=== PATIENT | female | born 1990 | race Caucasian/White ===

== ENCOUNTER → 2019-07-15 11:28 | Outpatient (BNVA) | payer BC, SELFPAY | PROVIDERS: Family Provider Family Medicine; PCP Family Medicine; Visit Provider Nurse Practitioner | DX: J02.9 Acute pharyngitis, unspecified (principal); R50.9 Fever, unspecified | CPT/HCPCS: 87081; 87400; 87880 ==

== ENCOUNTER 2020-02-01 20:48 | Emergency (ER) | payer BC, SELFPAY ==
--- NOTE | 2020-02-01 20:52 | XR_ITS ---
WS: [id number] Portable AP upright chest, 02/01/2020 Clinical Data: sob Comparison: None. Findings: No nodules, masses or effusions are seen. The heart is normal. The pulmonary vascularity is not increased. No pneumonia or pneumothorax is seen. There is a decorative item overlying the umbili cus. XR/XR chest 1V portable [id number] Impression: Negative chest.
[2020-02-01 20:59] VITALS: BP 136/84; PULSE 111; RESP 25; TEMP 39.5; O2SAT 97; BMI 19.8
[2020-02-01 21:17] LABS: Basophils % 0.1 %; Hematocrit 37.2 % (37.0-47.0); Hemoglobin 12.7 g/dL (11.5-15.3); Lymphocytes # 0.3 10^3/uL (0.8-4.8); Lymphocytes % 3.9 %; Mean Corpuscular HGB Conc 34.1 g/dL (30.0-36.0); Mean Corpuscular Hemoglobin 28.9 pg (28.0-34.0); Mean Corpuscular Volume 84.7 fL (81-99); Mean Platelet Volume 10.8 fL (7.4-10.4); Monocytes # 0.5 10^3/uL (0.2-0.9); Neutrophils # 7.76 10^3/uL (1.8-7.7); Neutrophils % 89.7 %; Nucleated Red Blood Cells % 0 %; Platelet Count 110 10^3/cmm (130-400); Red Blood Count 4.39 10^6/uL (4.1-5.3); Red Cell Distribution Width 11.1 % (12.1-15.1); White Blood Count 8.7 10^3/uL (4.0-10.0)
[2020-02-01 21:27] LABS: HCG, Serum Qual Negative (Negative)
[2020-02-01 21:34] LABS: Alanine Aminotransferase 11 U/L (0-33); Albumin Level 4.5 g/dL (3.5-5.2); Alkaline Phosphatase 59 IU/L (35-105); Anion Gap 13.8 (5-19); Aspartate Amino Transferase 16 U/L (0-32); Blood Urea Nitrogen 9 mg/dL (6-20); Calcium 9.2 mg/dL (8.5-10.5); Carbon Dioxide 24 mmol/L (22-29); Chloride 101 mmol/L (98-107); Globulin 2.7 g/dL (1.3-4.6); Glucose 112 mg/dL (65-115); Lipase 36 U/L (13-60); Osmolality Calculated 279 mOsm/kg (285-295); Potassium 3.8 mmol/L (3.5-5.1); Sodium 135 mmol/L (136-145); Total Bilirubin 0.5 mg/dL (0.15-1.2); Total Protein 7.2 g/dL (6.6-8.7)
--- NOTE | 2020-02-01 21:35 | ED_ITS ---
HPI - Fever General: Chief Complaint: Fever Stated Complaint: vomiting/sob/muscle aches Time Seen by Provider: 02/01/20 21:10 Source: patient Mode of arrival: ambulatory Limitations: no limitations History of Present Illness: HPI Narrative: Ms. Cardenas is a very nice 29-year-old female comes in with her mother with report of fever, shortness of breath, headache and vomiting. She is only vomited once and that was on the way here. She does have mild diffuse cramping abdominal pain. Patient states that she has a nonproductive cough. Patient states that she did have the COVID virus infection and was diagnosed on the fifth of this month and completed her 14-day quarantine with resolution of her symptoms. Patient began to get sick with the symptoms yesterday. She is not been around anybody else sick that she is aware of. She denies any dysuria, diarrhea, or any other complaints. She states of all her symptoms the muscle aches and pains are the worst. She denies any neck pain or stiffness. She denies any rash. Patient denies any urinary symptoms such as urinary frequency, urgency and does not describe any vaginal bleeding or discharge. Associated symptoms: Reports chills, headache(s), nausea and vomiting; Deny abdominal pain, flank pain, chest pain, diarrhea, dysuria or extremity pain Review of Systems Const: Reports: fever(s), chills, body aches, fatigue and malaise Eyes: Denies: change in vision, blurry vision, photophobia, eye discomfort, eye discharge, eye redness or yellow eyes ENMT: Denies: throat pain, odynophagia, hoarseness, swelling of lips/tongue, ear or mastoid pain, ear discharge, change in hearing or nasal discharge Card: Denies: chest pain, palpitations, irregular heart rhythm, edema, lightheadedness, syncope, pre-syncope, dyspnea on exertion or orthopnea Resp: Denies: dyspnea, productive cough, non-productive cough, wheezing, hemoptysis or chest congestion GI: Reports: nausea and vomiting; Denies: abdominal pain, hematemesis, coffee ground emesis, heartburn, diarrhea, constipation, GI cramping, hematochezia or melena : Denies: flank pain, dysuria, urinary frequency, urinary urgency or hematuria Musc: Denies: neck pain, back pain, extremity pain, extremity swelling, joint pain, joint swelling, joint redness, joint warmth or joint stiffness Skin/Breast: Denies: rash, pruritus, erythema, skin pain or skin tenderness Neuro: Reports: headache(s) Hu/Lymph: Denies: easy bruising, easy bleeding, petechiae, purpura or enlarged lymph nodes All/Imm: Denies: urticaria, throat swelling, tongue swelling, facial swelling or acute wheezing PFSH ED PFSH: Medical History Healthy female Surgical History History of tonsillectomy Family History Other Cancer Denies family history of Diabetes Dementia Hypertension Stroke Social History Smoking and tobacco status: never smoked Second hand smoke exposure: No Smoking risk assessment/counseling performed?: No Alcohol intake: current Alcohol intake frequency: holidays/special occasions only Desire information about alcohol rehabilitation?: No Counseling given: No Desire information about substance/drug rehabilitation?: No Counseling given: No Adopted: No Caregiver/support person: No Lives independently: Yes Household members: none Housing: House Marital status: Single service: No Current occupational status: employed Current occupation: [employer] History of recent travel: No Current gender identity: Female Female Reproductive History: Date of last menstrual period: 02/01/20 Physical Exam Const: COMMON NORMALS: no acute distress, patient oriented x3, no limitations and alert GENERAL APPEARANCE: cooperative HENMT: COMMON NORMALS: normocephalic, atraumatic, external ears normal, EAC's normal and Normal external nose present HEAD & SCALP: normal to inspection, normocephalic and atraumatic FACE & SINUS: normal facial exam and face symmetric NOSE: Normal external nose present and Normal nares present EXTERNAL EAR: Yes external ears normal EXTERNAL AUDITORY CANAL: EAC's normal MOUTH: Normal oral and palatal mucosa present, lip normal and tongue normal Eye: COMMON NORMALS: Equal, round and reactive pupils present and conjunctivae normal GENERAL EYE: appearance normal, both eyes and all related structures ALIGNMENT: Yes alignment normal PERIORBITAL: periorbital findings normal EYELID: eyelids normal CONJUNCTIVA: Yes conjunctivae normal SCLERA: sclerae normal PUPIL: Yes Equal, round and reactive pupils present Neck/C-Spine: COMMON NORMALS: full ROM, no lymphadenopathy, supple, no meningeal signs and no JVD GENERAL: Yes normal visual inspection and Yes trachea midline Chest: COMMONS NORMALS: normal inspection of the chest and normal palpation of entire chest wall Resp: COMMON NORMALS: normal respiratory effort, No retractions, No use of accessory muscles and clear to auscultation bilaterally EFFORT & INSPECTION: Yes able to speak in complete sentences and Yes symmetric chest movement AUSCULTATION: clear to auscultation bilaterally, no crackles, no rales, no rhonchi and no wheezes Cardio: COMMON NORMALS: no JVD, regular rate, regular rhythm, S1 normal heart sound present and S2 normal heart sound present RATE: regular rate RHYTHM: regular rhythm HEART SOUNDS: S1 normal heart sound present, S2 normal heart sound present, no click, no gallops, no murmurs and no rubs GI: COMMON NORMALS: Soft to palpation and No hepatosplenomegaly present PALPATION: Yes Soft to palpation, Yes Tenderness to palpation present (GI) (Mild diffusely), No Guarding due to palpation present (GI), No Rigid due to palpation, Yes No hepatosplenomegaly present, No Hernia present, No Palpable mass present and No Pulsatile mass present : COMMON NORMALS: Yes no CVA tenderness BLADDER/KIDNEY EXAM: Yes no CVA tenderness EXTERNAL FEMALE EXAM: No Hernia present Back/Pelvis: COMMON NORMALS: no CVA tenderness, thoracic and lumbar spine normal to inspection, no thoracic nor lumbar tenderness and thoraco-lumbar ROM normal Extremity: COMMON NORMALS: normal to inspection, full ROM, capillary refill normal, no joint enlargement, no clubbing, cyanosis or edema and no calf tenderness Neuro: COMMON NORMALS: patient oriented x3, CN's II-XII intact bilaterally, moves all extremities, no focal motor deficits and no sensory deficits noted SENSORIUM/ORIENTATION: Yes alert MENINGEAL SIGNS: Yes no meningeal signs SPEECH: speech normal Psych: COMMON NORMALS: mental status grossly normal, Normal thought process present, cooperative, normal affect, speech normal and activity/motor behavior normal SPEECH: Yes normal speech THOUGHT PROCESS: Normal thought process present Skin: COMMON NORMALS: no rashes or lesions noted, turgor normal, no jaundice, no petechiae and no mottling GENERAL SKIN EXAM: no rashes or lesions noted and turgor normal Course Vital Signs: Vital signs: Vital Signs Temperature 102 F H 02/02/20 02:13 Pulse Rate 76 02/02/20 02:13 Respiratory Rate 18 02/02/20 02:13 Blood Pressure 121/70 02/02/20 02:13 Pulse Oximetry 98 02/02/20 02:13 MDM - Fever MDM Narrative: Medical decision making narrative: 0120 - Zainab is feeling much better at this time. Her fever is down and she no longer feels nauseated and has not vomited here. Her greatest concern was that of emir the COVID virus again but there is no evidence of this at this time. Her work-up is been unremarkable here except for an elevated CRP. Because of the abdominal pain and vomiting with no evidence of infection with other testing I did CT her abdomen. The CT scan does show a possible picture of gastroenteritis which could be a cause for her fever and symptoms although she is not had any diarrhea. Her appendix is normal. 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 I reviewed this with Dr. Mckeon who states that this is likely just her normal appearance of her kidney. There is no evidence of stone on the CT. Dr. Mckeon suggested just treating her for viral infection. I did discuss with her the possibility of other things such as meningitis but she adamantly refuses a spinal tap. The patient does not clinically appear to have meningitis she does have a headache but no neck pain or meningismus. She has diffuse muscle aches and pains and fever but her symptoms are global and not focal to her head and neck. Nonetheless I have informed her and her mother who is with her that a missed meningitis can be life-threatening. Despite this warning the patient is adamant she does not want to go through this procedure and wants to be discharged. I am going to place the patient on empiric antibiotics and give her time to rest at home. I will also give her nausea medicine for at home. She agrees to follow-up with Dr. Pisano the next 1 to 2 days for recheck and if for any reason she cannot see him she agrees to return here. Patient understands if she change her mind or symptoms become worse she can return here for the lumbar puncture and other testing. At this time though the patient appears improved and she is insisting upon discharge. Patient clearly has the capacity to make this decision and she understands the risks of leaving without complete work-up but at this time she is insistent upon discharge. Lab Data: Labs: Lab Results 02/01/20 02/01/20 02/01/20 Range/Units 21:08 21:08 21:08 WBC 8.7 (4.0-10.0) 10^3/ uL RBC 4.39 (4.1-5.3) 10^6/u L Hgb 12.7 (11.5-15.3) g/dL Hct 37.2 (37.0-47.0) % MCV 84.7 (81-99) fL MCH 28.9 (28.0-34.0) pg MCHC 34.1 (30.0-36.0) g/dL RDW 11.1 L (12.1-15.1) % Plt Count 110 L (130-400) 10^3/c mm MPV 10.8 H (7.4-10.4) fL Neut % (Auto) 89.7 % Lymph % (Auto) 3.9 % [place] % (Auto) 6.0 % Eos % (Auto) 0.0 % Baso % (Auto) 0.1 % Neut # (Auto) 7.76 H (1.8-7.7) 10^3/u L Lymph # (Auto) 0.3 L (0.8-4.8) 10^3/u L [place] # (Auto) 0.5 (0.2-0.9) 10^3/u L Eos # (Auto) 0.0 (0.0-0.8) 10^3/u L Baso # (Auto) 0.0 (0.0-0.1) 10^3/u L Nucleated RBC % (a uto) 0 % Nucleated RBCs # 0.0 /100WBC Fibrinogen (174-498) mg/dL D-Dimer (0-0.59) ug/mIFE U Sodium 135 L (136-145) mmol/L Potassium 3.8 (3.5-5.1) mmol/L Chloride 101 (98-107) mmol/L Carbon Dioxide 24 (22-29) mmol/L Anion Gap 13.8 (5-19) BUN 9 (6-20) mg/dL Creatinine 0.8 (0.5-0.9) mg/dL GFR Calculation 86.0 L (90-130) mL/min Glucose 112 (65-115) mg/dL Calculated Osmolal ity 279 L (285-295) mOsm/k g Lactic Acid (0.5-2.2) mmol/L Calcium 9.2 (8.5-10.5) mg/dL Magnesium (1.7-2.3) mg/dL Total Bilirubin 0.5 (0.15-1.2) mg/dL AST 16 (0-32) U/L ALT 11 (0-33) U/L Alkaline Phosphata se 59 (35-105) IU/L Lactate Dehydrogen ase (135-214) U/L C-Reactive Protein (0.0-4.9) mg/L Total Protein 7.2 (6.6-8.7) g/dL Albumin 4.5 (3.5-5.2) g/dL Globulin 2.7 (1.3-4.6) g/dL Lipase 36 (13-60) U/L Procalcitonin (0-0.5) ng/mL HCG, Qual Negative (Negative) Urine Color (Yellow) Urine Appearance (CLEAR) Urine pH (5-7) Ur Specific Gravit y (1.005-1.030) Urine Protein (Negative) Urine Glucose (UA) (Normal) Urine Ketones (Negative) Urine Blood (Negative) Urine Nitrate (Negative) Urine Bilirubin (Negative) Prot Sulfosalicyli c Acd (Negative) Urine Urobilinogen (Negative) mg/dL Ur Leukocyte Sabrina ase (Negative) Influenza Type A A g (Negative) Influenza Type B A g (Negative) SARS-CoV-2 Ag (Rap id) (Negative) Group A Strep Rapi d (Negative) 02/01/20 02/01/20 02/01/20 Range/Units 21:08 21:08 21:08 WBC (4.0-10.0) 10^3/ uL RBC (4.1-5.3) 10^6/u L Hgb (11.5-15.3) g/dL Hct (37.0-47.0) % MCV (81-99) fL MCH (28.0-34.0) pg MCHC (30.0-36.0) g/dL RDW (12.1-15.1) % Plt Count (130-400) 10^3/c mm MPV (7.4-10.4) fL Neut % (Auto) % Lymph % (Auto) % [place] % (Auto) % Eos % (Auto) % Baso % (Auto) % Neut # (Auto) (1.8-7.7) 10^3/u L Lymph # (Auto) (0.8-4.8) 10^3/u L [place] # (Auto) (0.2-0.9) 10^3/u L Eos # (Auto) (0.0-0.8) 10^3/u L Baso # (Auto) (0.0-0.1) 10^3/u L Nucleated RBC % (a uto) % Nucleated RBCs # /100WBC Fibrinogen 382 (174-498) mg/dL D-Dimer 0.39 (0-0.59) ug/mIFE U Sodium (136-145) mmol/L Potassium (3.5-5.1) mmol/L Chloride (98-107) mmol/L Carbon Dioxide (22-29) mmol/L Anion Gap (5-19) BUN (6-20) mg/dL Creatinine (0.5-0.9) mg/dL GFR Calculation (90-130) mL/min Glucose (65-115) mg/dL Calculated Osmolal ity (285-295) mOsm/k g Lactic Acid 0.8 (0.5-2.2) mmol/L Calcium (8.5-10.5) mg/dL Magnesium 1.7 (1.7-2.3) mg/dL Total Bilirubin (0.15-1.2) mg/dL AST (0-32) U/L ALT (0-33) U/L Alkaline Phosphata se (35-105) IU/L Lactate Dehydrogen ase 158 (135-214) U/L C-Reactive Protein 55.5 H (0.0-4.9) mg/L Total Protein (6.6-8.7) g/dL Albumin (3.5-5.2) g/dL Globulin (1.3-4.6) g/dL Lipase (13-60) U/L Procalcitonin 0.16 (0-0.5) ng/mL HCG, Qual (Negative) Urine Color (Yellow) Urine Appearance (CLEAR) Urine pH (5-7) Ur Specific Gravit y (1.005-1.030) Urine Protein (Negative) Urine Glucose (UA) (Normal) Urine Ketones (Negative) Urine Blood (Negative) Urine Nitrate (Negative) Urine Bilirubin (Negative) Prot Sulfosalicyli c Acd (Negative) Urine Urobilinogen (Negative) mg/dL Ur Leukocyte Sabrina ase (Negative) Influenza Type A A g (Negative) Influenza Type B A g (Negative) SARS-CoV-2 Ag (Rap id) (Negative) Group A Strep Rapi d (Negative) 02/01/20 02/01/20 02/01/20 Range/Units 21:34 21:34 22:08 WBC (4.0-10.0) 10^3/ uL RBC (4.1-5.3) 10^6/u L Hgb (11.5-15.3) g/dL Hct (37.0-47.0) % MCV (81-99) fL MCH (28.0-34.0) pg MCHC (30.0-36.0) g/dL RDW (12.1-15.1) % Plt Count (130-400) 10^3/c mm MPV (7.4-10.4) fL Neut % (Auto) % Lymph % (Auto) % [place] % (Auto) % Eos % (Auto) % Baso % (Auto) % Neut # (Auto) (1.8-7.7) 10^3/u L Lymph # (Auto) (0.8-4.8) 10^3/u L [place] # (Auto) (0.2-0.9) 10^3/u L Eos # (Auto) (0.0-0.8) 10^3/u L Baso # (Auto) (0.0-0.1) 10^3/u L Nucleated RBC % (a uto) % Nucleated RBCs # /100WBC Fibrinogen (174-498) mg/dL D-Dimer (0-0.59) ug/mIFE U Sodium (136-145) mmol/L Potassium (3.5-5.1) mmol/L Chloride (98-107) mmol/L Carbon Dioxide (22-29) mmol/L Anion Gap (5-19) BUN (6-20) mg/dL Creatinine (0.5-0.9) mg/dL GFR Calculation (90-130) mL/min Glucose (65-115) mg/dL Calculated Osmolal ity (285-295) mOsm/k g Lactic Acid (0.5-2.2) mmol/L Calcium (8.5-10.5) mg/dL Magnesium (1.7-2.3) mg/dL Total Bilirubin (0.15-1.2) mg/dL AST (0-32) U/L ALT (0-33) U/L Alkaline Phosphata se (35-105) IU/L Lactate Dehydrogen ase (135-214) U/L C-Reactive Protein (0.0-4.9) mg/L Total Protein (6.6-8.7) g/dL Albumin (3.5-5.2) g/dL Globulin (1.3-4.6) g/dL Lipase (13-60) U/L Procalcitonin (0-0.5) ng/mL HCG, Qual (Negative) Urine Color Yellow (Yellow) Urine Appearance Clear (CLEAR) Urine pH 8 H (5-7) Ur Specific Gravit y 1.015 (1.005-1.030) Urine Protein Neg (Negative) Urine Glucose (UA) Norm (Normal) Urine Ketones Negative (Negative) Urine Blood Neg (Negative) Urine Nitrate Negative (Negative) Urine Bilirubin Neg (Negative) Prot Sulfosalicyli c Acd Negative (Negative) Urine Urobilinogen Norm (Negative) mg/dL Ur Leukocyte Sabrina ase Negative (Negative) Influenza Type A A g Negative (Negative) Influenza Type B A g Negative (Negative) SARS-CoV-2 Ag (Rap id) (Negative) Group A Strep Rapi d Negative (Negative) 02/01/20 Range/Units 23:14 WBC (4.0-10.0) 10^3/ uL RBC (4.1-5.3) 10^6/u L Hgb (11.5-15.3) g/dL Hct (37.0-47.0) % MCV (81-99) fL MCH (28.0-34.0) pg MCHC (30.0-36.0) g/dL RDW (12.1-15.1) % Plt Count (130-400) 10^3/c mm MPV (7.4-10.4) fL Neut % (Auto) % Lymph % (Auto) % [place] % (Auto) % Eos % (Auto) % Baso % (Auto) % Neut # (Auto) (1.8-7.7) 10^3/u L Lymph # (Auto) (0.8-4.8) 10^3/u L [place] # (Auto) (0.2-0.9) 10^3/u L Eos # (Auto) (0.0-0.8) 10^3/u L Baso # (Auto) (0.0-0.1) 10^3/u L Nucleated RBC % (a uto) % Nucleated RBCs # /100WBC Fibrinogen (174-498) mg/dL D-Dimer (0-0.59) ug/mIFE U Sodium (136-145) mmol/L Potassium (3.5-5.1) mmol/L Chloride (98-107) mmol/L Carbon Dioxide (22-29) mmol/L Anion Gap (5-19) BUN (6-20) mg/dL Creatinine (0.5-0.9) mg/dL GFR Calculation (90-130) mL/min Glucose (65-115) mg/dL Calculated Osmolal ity (285-295) mOsm/k g Lactic Acid (0.5-2.2) mmol/L Calcium (8.5-10.5) mg/dL Magnesium (1.7-2.3) mg/dL Total Bilirubin (0.15-1.2) mg/dL AST (0-32) U/L ALT (0-33) U/L Alkaline Phosphata se (35-105) IU/L Lactate Dehydrogen ase (135-214) U/L C-Reactive Protein (0.0-4.9) mg/L Total Protein (6.6-8.7) g/dL Albumin (3.5-5.2) g/dL Globulin (1.3-4.6) g/dL Lipase (13-60) U/L Procalcitonin (0-0.5) ng/mL HCG, Qual (Negative) Urine Color (Yellow) Urine Appearance (CLEAR) Urine pH (5-7) Ur Specific Gravit y (1.005-1.030) Urine Protein (Negative) Urine Glucose (UA) (Normal) Urine Ketones (Negative) Urine Blood (Negative) Urine Nitrate (Negative) Urine Bilirubin (Negative) Prot Sulfosalicyli c Acd (Negative) Urine Urobilinogen (Negative) mg/dL Ur Leukocyte Sabrina ase (Negative) Influenza Type A A g (Negative) Influenza Type B A g (Negative) SARS-CoV-2 Ag (Rap id) Negative (Negative) Group A Strep Rapi d (Negative) Imaging Data^: CXR: Attestation: I personally reviewed and interpreted this imaging study as follows: My impression: No acute cardiopulmonary findings. CT Abd/Pel: Radiologist's impression: [place] [address] CT Scan Report Signed Patient: Zainab Cardenas Unit #: [id number] : 1990 Age/Sex: 29 / F ADM Date: 02/01/20 Loc: ER Room/Bed: Attending Dr: Ordering Provider/Ordering MD: Germaine Juárez DO Date of Service: 02/01/20 Procedure(s): CT abdomen pelvis w con* [id number] Accession Number(s): [id number] Report Number: [id number] PROCEDURE INFORMATION: Exam: CT Abdomen And Pelvis With Contrast Exam date and time: 02/01/2020 11:13 PM Age: 29 years old Clinical indication: Nausea and vomiting; Abdominal pain; Generalized TECHNIQUE: Imaging protocol: Computed tomography of the abdomen and pelvis with intravenous contrast. Radiation optimization: All CT scans at this facility use at least one of these dose optimization techniques: automated exposure control; mA and/or kV adjustment per patient size (includes targeted exams where dose is matched to clinical indication); or iterative reconstruction. Contrast material: O0MNI 300; Contrast volume: 95 ml; Contrast route: INTRAVENOUS (IV); COMPARISON: CT abdomen pelvis w con* [id number] 04/28/2014 6:50 PM RADIATION DOSE METRICS: Total DLP (mGy-cm): 389.18 FINDINGS: Lungs: The lung bases are clear. Liver: Unremarkable. Gallbladder and bile ducts: No definite gallbladder abnormality by CT. No biliary tree dilation. Pancreas: Unremarkable. Spleen: Unremarkable. Adrenals: Unremarkable. Kidneys and ureters: Duplication of the right renal collecting system, with at least partial duplication of the ureters. Mild right hydronephrosis and hydroureter, involving both the upper and lower pole moieties. Suspect mild thickening of the ureteral mckay. No visible ureteral calculus. While not specific, the above findings could be secondary to right ureteritis/pyelonephritis. Other possible etiologies for this appearance might include a recently passed or radiolucent ureteral calculus, and less commonly ureteral stricture. Possibly this could be the patient's baseline appearance. Please correlate clinically. No perinephric fluid. The kidneys enhance homogeneously. No left hydronephrosis or visible left ureteral calculus. Stomach and bowel: A few proximal small bowel loops, including the duodenum, are fluid filled and borderline prominent in size. However, the overall appearance is not strongly suggestive of significant small bowel obstruction at this time. This appearance could be secondary to some form of gastroenteritis. Please correlate clinically. If there is clinical suspicion for small bowel obstruction, follow-up may be helpful to exclude progression. There are no CT findings to strongly suggest diverticulitis. Appendix: The appendix is visualized and appears normal. Intraperitoneal space: No free intraperitoneal air, or ascites. Vasculature: No evidence for abdominal aortic aneurysm. Lymph nodes: No retroperitoneal adenopathy. Urinary bladder: Suspect mild to moderate diffuse urinary bladder wall thickening. While nonspecific, this could indicate evidence for cystitis. Please correlate clinically. No visible calculus in the urinary bladder. Reproductive: The right ovary contains a 22-23 mm dominant follicle versus small cyst. Significance uncertain due to relatively small size. Small amount of cul-de-sac fluid. Bones/joints: No significant acute finding. Soft tissues: Very small umbilical hernia, containing only fat. CT/CT abdomen pelvis w con* [id number] IMPRESSION: 1. Mild right hydronephrosis and hydroureter, details above. Mild thickening of the ureteral mckay. No visible ureteral calculus. While not specific, the findings could be secondary to right ureteritis/pyelonephritis. See above discussion of other possible etiologies. 2. Suspected urinary bladder wall thickening, possibly secondary to cystitis. 3. A few proximal small bowel loops, are fluid filled and borderline prominent in size. See above discussion. This appearance could be secondary to some form of gastroenteritis. 4. Normal appendix. 5. The right ovary contains a 22-23 mm dominant follicle versus small cyst. Significance uncertain due to relatively small size. Small amount of cul-de-sac fluid. 6. Other findings discussed above. Radiation Dose CTDIVOL = (mGy): DLP = 389.18 (mGy-cm) Dictated By: Andrew Gonzalez MD Signed By: Andrew Gonzalez MD Signed Date/Time: 02/02/2043 DD/ Discharge Plan Discharge Patient Disposition: Home Clinical Impression: Fever of unknown origin, Pyelonephritis, Viral infection Condition: Stable Prescriptions: New Zofran 4 mg tablet 4 mg PO Q6H PRN (Reason: nausea and vomiting) Qty: 20 RF: 0 cefdinir 300 mg capsule 300 mg PO Q12H 14 Days Qty: 28 RF: 0 Discharge Orders: Discharge Order (Routine); Ordered 02/02/20 Ordered By: Germaine Juárez Referrals: Sherry Pisano MD [Primary Care Provider] - 1-3 days Discharge Diet: Advance as tolerated Discharge Activity: Increase activity as tolerated Patient Instructions: Acute Pyelonephritis (ED), Viral Syndrome (ED) Activity Restrictions/Additional Instructions: Please return to the ER immediately for any of the signs or symptoms listed on your discharge instruction sheets, worsening/changing of your symptoms, you are not getting better as quickly as expected, or for ANY other cause or concerns. You are leaving without complete evaluation and care of your symptoms. I have recommended a lumbar puncture/spinal tap to rule out meningitis but you have refused. Meningitis can be life-threatening so if you change your mind, your symptoms worsen, you cannot stop vomiting, you develop a rash, or you develop any other sign or symptom please return to the ER immediately for recheck. Be certain to follow-up with Dr. Pisano this week for recheck and if for any reason you cannot be seen by him within the next 1 to 2 days return here for reevaluation. Stand Alone Forms: Work/School Release Discharge Date/Time: 02/02/20 02:15 Coding Level of Care Code ED Pals Specialist for Chg Fwd Exam Comprehensive
[2020-02-01 21:36] VITALS: BP 134/76; PULSE 98; RESP 18; O2SAT 99
[2020-02-01 21:38] LABS: Lactic Sepsis W/Reflex 0.8 mmol/L (0.5-2.2)
[2020-02-01] MEDS: acetaminophen 500 mg Tablet 1000 MG PO (21:53)
[2020-02-01 21:54] LABS: Fibrinogen 382 mg/dL (174-498)
[2020-02-01] MEDS: ondansetron 2 mg/ML SDV 2 mL 4 MG IVP (21:54)
[2020-02-01 21:57] LABS: D Dimer 0.39 ug/mIFEU (0-0.59)
[2020-02-01] MEDS: sodium chloride 0.9% 1,769.01 ML 1769 ML IV (21:57)
[2020-02-01 22:01] LABS: Procalcitonin 0.16 ng/mL (0-0.5)
[2020-02-01 22:12] LABS: C Reactive Protein 55.5 mg/L (0.0-4.9); Lactate Dehydrogenase 158 U/L (135-214); Magnesium 1.7 mg/dL (1.7-2.3)
[2020-02-01 22:19] LABS: Rapid Strep A Test Negative (Negative)
[2020-02-01 22:29] LABS: Influenza A by IFA Negative (Negative); Influenza B by IFA Negative (Negative)
[2020-02-01 22:35] LABS: Add Urine Microscopic? NO
[2020-02-01 22:53] VITALS: BP 120/72; TEMP 39.2; O2SAT 96
[2020-02-01 22:54] LABS: Bilirubin Urine Neg (Negative); Blood Urine Neg (Negative); Glucose Urine UA Norm (Normal); Ketones Urine Negative (Negative); Leukocyte Esterase Urine Negative (Negative); Nitrate Urine Negative (Negative); Protein Urine Neg (Negative); Specific Gravity, Urine 1.015 (1.005-1.030); Sulfosalicylic Acid Urine Negative (Negative); Urine Appearance Clear (CLEAR); Urine Color Yellow (Yellow); Urobilinogen Urine Norm (Negative); pH Urine 8 (5-7)
[2020-02-01 22:55] VITALS: BP 120/72; PULSE 88; RESP 18; TEMP 39.2; O2SAT 96
--- NOTE | 2020-02-01 23:01 | CTR_ITS ---
PROCEDURE INFORMATION: Exam: CT Abdomen And Pelvis With Contrast Exam date and time: 02/01/2020 11:13 PM Age: 29 years old Clinical indication: Nausea and vomiting; Abdominal pain; Generalized TECHNIQUE: Imaging protocol: Computed tomography of the abdomen and pelvis with intravenous contrast. Radiation optimization: All CT scans at this facility use at least one of these dose optimization techniques: automated exposure control; mA and/or kV adjustment per patient size (includes targeted exams where dose is matched to clinical indication); or iterative reconstruction. Contrast material: O0MNI 300; Contrast volume: 95 ml; Contrast route: INTRAVENOUS (IV); COMPARISON: CT abdomen pelvis w con* [id number] 04/28/2014 6:50 PM RADIATION DOSE METRICS: Total DLP (mGy-cm): 389.18 FINDINGS: Lungs: The lung bases are clear. Liver: Unremarkable. Gallbladder and bile ducts: No definite gallbladder abnormality by CT. No biliary tree dilation. Pancreas: Unremarkable. Spleen: Unremarkable. Adrenals: Unremarkable. Kidneys and ureters: Duplication of the right renal collecting system, with at least partial duplication of the ureters. Mild right hydronephrosis and hydroureter, involving both the upper and lower pole moieties. Suspect mild thickening of the ureteral mckay. No visible ureteral calculus. While not specific, the above findings could be secondary to right ureteritis/pyelonephritis. Other possible etiologies for this appearance might include a recently passed or radiolucent ureteral calculus, and less commonly ureteral stricture. Possibly this could be the patient's baseline appearance. Please correlate clinically. No perinephric fluid. The kidneys enhance homogeneously. No left hydronephrosis or visible left ureteral calculus. Stomach and bowel: A few proximal small bowel loops, including the duodenum, are fluid filled and borderline prominent in size. However, the overall appearance is not strongly suggestive of significant small bowel obstruction at this time. This appearance could be secondary to some form of gastroenteritis. Please correlate clinically. If there is clinical suspicion for small bowel obstruction, follow-up may be helpful to exclude progression. There are no CT findings to strongly suggest diverticulitis. Appendix: The appendix is visualized and appears normal. Intraperitoneal space: No free intraperitoneal air, or ascites. Vasculature: No evidence for abdominal aortic aneurysm. Lymph nodes: No retroperitoneal adenopathy. Urinary bladder: Suspect mild to moderate diffuse urinary bladder wall thickening. While nonspecific, this could indicate evidence for cystitis. Please correlate clinically. No visible calculus in the urinary bladder. Reproductive: The right ovary contains a 22-23 mm dominant follicle versus small cyst. Significance uncertain due to relatively small size. Small amount of cul-de-sac fluid. Bones/joints: No significant acute finding. Soft tissues: Very small umbilical hernia, containing only fat. CT/CT abdomen pelvis w con* [id number] IMPRESSION: 1. Mild right hydronephrosis and hydroureter, details above. Mild thickening of the ureteral mckay. No visible ureteral calculus. While not specific, the findings could be secondary to right ureteritis/pyelonephritis. See above discussion of other possible etiologies. 2. Suspected urinary bladder wall thickening, possibly secondary to cystitis. 3. A few proximal small bowel loops, are fluid filled and borderline prominent in size. See above discussion. This appearance could be secondary to some form of gastroenteritis. 4. Normal appendix. 5. The right ovary contains a 22-23 mm dominant follicle versus small cyst. Significance uncertain due to relatively small size. Small amount of cul-de-sac fluid. 6. Other findings discussed above. Radiation Dose CTDIVOL = (mGy): DLP = 389.18 (mGy-cm)
[2020-02-01 23:20] VITALS: BP 117/67; PULSE 89; RESP 18; O2SAT 96
[2020-02-01 23:43] VITALS: BP 118/70; PULSE 89; RESP 18; O2SAT 97
--- NOTE | 2020-02-01 23:43 | PC.NURSE ---
PT swabbed for rapid COVID test and taken to lab.
[2020-02-01] MEDS: iohexol 300 mg/mL 100 mL Btl IV (23:50)
[2020-02-02 00:31] VITALS: BP 118/71; PULSE 87; RESP 18; O2SAT 97
[2020-02-02 00:46] LABS: SARS Covid-2 Antigen Negative (Negative)
[2020-02-02] MEDS: ketorolac 30 mg/mL INJ 10 MG IVP (01:10)
[2020-02-02] MEDS: ondansetron 2 mg/ML SDV 2 mL 4 MG IVP (01:11)
[2020-02-02] MEDS: lactated ringers 1,000 ML 999 ML IV (01:13)
[2020-02-02] MEDS: cefTRIAXone 1,000 MG in sodium chloride 0.9% (plus) 50 ML 100 MG IV (01:14)
[2020-02-02 01:23] VITALS: BP 105/58; PULSE 76; RESP 14; O2SAT 96
[2020-02-02 02:10] VITALS: RESP 16; O2SAT 97
[2020-02-02] MEDS: morphine 4 mg/mL SDV 1 mL IVP (02:10)
[2020-02-02 02:13] VITALS: BP 121/70; PULSE 76; RESP 18; TEMP 38.8; O2SAT 98
--- NOTE | 2020-02-02 02:16 | PC.NURSE ---
Unable to scan morphine. Pt given 4mg via IV in L AC. Pt rated pain as an 8.
--- NOTE | 2020-02-02 02:34 | PC.NURSE ---
0212: and this nurse at the bedside. spoke with mother and child regarding their questions about a lumbar puncture. PT mother wanted the pt to have procedure done, however pt refused. pt of sound mind. discussed all aspects and benefits of the procedure and informed patient if her condition worsened to return. PT states she understands.
== END 2020-02-02 02:15 | disposition home or self-care (01) ==
PROVIDERS: Emergency Medicine; Emergency Provider Emergency Medicine; PCP Family Medicine
DX: N12 Tubulo-interstitial nephritis, not specified as acute or chronic (principal); B34.9 Viral infection, unspecified
CPT/HCPCS: 12345; 36415; 71045; 74177; 80053; 81003; 83605; 83615; 83690; 83735; 84145; 84703; 85025; 85378; 85384; 86140; 87040; 87081; 87205; 87426; 87804; 87880; 96365; 96367; 96375; 99284; J0696; J1885; J2270; J2405; J7030; Q9967

== ENCOUNTER → 2020-02-03 11:35 | Outpatient (BNVA) | payer BC, SELFPAY | PROVIDERS: PCP Family Medicine; Visit Provider Nurse Practitioner | DX: J02.9 Acute pharyngitis, unspecified (principal) | CPT/HCPCS: 85025; 86308; 87070 ==

== ENCOUNTER → 2020-02-09 08:21 | Outpatient (BNVA) | payer BC, SELFPAY | PROVIDERS: PCP Family Medicine; Visit Provider Nurse Practitioner | DX: R79.89 Other specified abnormal findings of blood chemistry (principal) | CPT/HCPCS: 85025 ==

== ENCOUNTER 2020-02-10 14:54 | Outpatient (CLI) | payer BC, SELFPAY ==
--- NOTE | 2020-02-10 14:15 | US_ITS ---
WS: [id number] Upper abdomen ultrasound, 02/10/2020 Clinical Data: severe low platelet/ thrombocytopenia Comparison: Abdomen ultrasound, 11/14/2015. Findings: Liver shows no cysts, masses or dilated intrahepatic ducts. The liver measured 13.04 cm. The spleen measured 4.10 x 3.88 x 10.02 cm. There are no intrasplenic masses or capsular abnormalitie s. US/US abdomen limited [id number] Impression: Negative liver and spleen.
[2020-02-10 16:02] LABS: Basophils % 0.2 %; Eosinophils % 0.2 %; Hematocrit 39.3 % (37.0-47.0); Hemoglobin 13.4 g/dL (11.5-15.3); Lymphocytes # 1.7 10^3/uL (0.8-4.8); Mean Corpuscular HGB Conc 34.1 g/dL (30.0-36.0); Mean Corpuscular Hemoglobin 28.9 pg (28.0-34.0); Mean Corpuscular Volume 84.7 fL (81-99); Monocytes # 0.5 10^3/uL (0.2-0.9); Monocytes % 9.5 %; Neutrophils # 3.18 10^3/uL (1.8-7.7); Neutrophils % 58.9 %; Nucleated Red Blood Cells % 0 %; Platelet Count 77 10^3/cmm (130-400); Red Blood Count 4.64 10^6/uL (4.1-5.3); Red Cell Distribution Width 11.3 % (12.1-15.1); White Blood Count 5.4 10^3/uL (4.0-10.0)
[2020-02-10 16:53] LABS: LAB Peripheral Smear Sent for Review
== END 2020-02-10 14:55 | disposition home or self-care (01) ==
LOC: RAD 14:58
PROVIDERS: PCP Nurse Practitioner; Visit Provider Nurse Practitioner
DX: D69.6 Thrombocytopenia, unspecified (principal)
CPT/HCPCS: 76705; 80500; 85025; 86000; 86617; 86666; 86757

== ENCOUNTER → 2020-02-17 08:54 | Outpatient (BNVA) | payer BC, SELFPAY | PROVIDERS: PCP Nurse Practitioner; Visit Provider Nurse Practitioner | DX: D69.6 Thrombocytopenia, unspecified (principal) | CPT/HCPCS: 85025 ==

== ENCOUNTER → 2020-03-22 11:58 | Outpatient (BNVA) | payer BC, SELFPAY | PROVIDERS: PCP Nurse Practitioner; Visit Provider Nurse Practitioner | DX: D69.6 Thrombocytopenia, unspecified (principal); N92.0 Excessive and frequent menstruation with regular cycle; F41.9 Anxiety disorder, unspecified | CPT/HCPCS: 85025 ==

== ENCOUNTER → 2020-04-20 10:58 | Outpatient (BNVA) | payer BC, SELFPAY | PROVIDERS: PCP Nurse Practitioner; Visit Provider Nurse Practitioner | DX: R19.00 Intra-abdominal and pelvic swelling, mass and lump, unspecified site (principal); D69.6 Thrombocytopenia, unspecified | CPT/HCPCS: 80053; 85025 ==

== ENCOUNTER 2020-05-09 09:25 | Outpatient (CLI) | payer BC, SELFPAY ==
--- NOTE | 2020-05-09 09:30 | US_ITS ---
WS: [id number] Abdominal ultrasound, limited. HISTORY: Evaluate spleen and LEFT upper abdomen. Palpable mass and swelling. COMPARISON: CT 02/01/2020. Spleen is normal size measuring 9.7 cm in length. No mass. Normal concavity of the hilum. No increase d vascularity or nodule. Soft tissues in the LEFT upper quadrant anterior to the ribs as directed by the patient is also negative. There is no soft tissue mass. Normal overlying musculature. US/US abdomen limited [id number] IMPRESSION: Normal spleen. Normal soft tissues LEFT upper abdomen in the area of interest.
== END 2020-05-09 09:26 | disposition home or self-care (01) ==
LOC: RAD 09:31
PROVIDERS: PCP Nurse Practitioner; Visit Provider Nurse Practitioner
DX: R19.00 Intra-abdominal and pelvic swelling, mass and lump, unspecified site (principal)
CPT/HCPCS: 76705

== ENCOUNTER → 2021-01-02 11:01 | Outpatient (BNVA) | payer BC, SELFPAY | PROVIDERS: PCP Nurse Practitioner; Visit Provider Nurse Practitioner | DX: Z11.59 Encounter for screening for other viral diseases (principal); Z20.822 Contact with and (suspected) exposure to COVID-19 | CPT/HCPCS: 87635 ==

== ENCOUNTER → 2021-02-05 14:14 | Outpatient (BNVA) | payer BC, SELFPAY | PROVIDERS: PCP Nurse Practitioner; Visit Provider Nurse Practitioner | DX: D69.6 Thrombocytopenia, unspecified (principal) | CPT/HCPCS: 85025 ==

== ENCOUNTER 2021-06-10 14:44 | Emergency (ER) | payer BC, SELFPAY ==
[2021-06-10 15:34] VITALS: BP 127/81; PULSE 67; RESP 18; TEMP 36.6; O2SAT 100; BMI 23.3
--- NOTE | 2021-06-10 15:50 | W.ED.GENADLT ---
HPI - General Adult General: Chief complaint: General Medical Stated complaint: Rabies shot Time Seen by Provider: 06/10/21 15:40 History of Present Illness: Patient is a 30-year-old female comes to the ED with possible rabies exposure. 2 days ago patient was in her shower. She went and grabbed her loofah and when she squeezed it felt like there was something hard in her loofah. She then shook it and a bat fell out. Patient then dropped the loofah in the back crawled back towards the loofah. The bat seemed lethargic and did not fly away. Father then grabbed bat and took it outside. It is unknown how long the bat has been in house. Patient says she did not feel any bites or puncture wound after encounter with bat. Denies any current symptoms and has no swelling or erythema in her hands or fingers. Denies any fever, headache or any tingling or pain in hands. Associated symptoms: Deny chest pain, dyspnea, headache(s), nausea, rash, palpitations or vomiting Review of Systems Const: Denies: fever(s), chills or fatigue Eyes: Denies: change in vision or eye discomfort ENMT: Denies: throat pain, odynophagia, nasal discharge or nasal congestion Card: Denies: chest pain, palpitations, edema, swelling of feet/ankles, dyspnea on exertion or orthopnea Resp: Denies: dyspnea, productive cough or non-productive cough GI: Denies: abdominal pain, nausea, vomiting, diarrhea, constipation or hematochezia : Denies: flank pain, dysuria or hematuria Musc: Denies: neck pain, back pain or extremity swelling Skin/Breast: Denies: rash or new lesions Neuro: Denies: headache(s) PFS ED PFSH: Medical History Healthy female Surgical History History of tonsillectomy Family History Other Cancer Denies family history of Diabetes Dementia Hypertension Stroke Social History Smoking and tobacco status: never smoked Second hand smoke exposure: No Smoking risk assessment/counseling performed?: No Alcohol intake: current Alcohol intake frequency: holidays/special occasions only Desire information about alcohol rehabilitation?: No Counseling given: No Desire information about substance/drug rehabilitation?: No Counseling given: No Adopted: No Caregiver/support person: No Lives independently: Yes Household members: none Housing: House Marital status: Single service: No Current occupational status: employed Current occupation: [employer] History of recent travel: No Current gender identity: Female Female Reproductive History: Date of last menstrual period: 05/19/21 Physical Exam Const: COMMON NORMALS: no acute distress, patient oriented x3, healthy appearing and alert HENMT: COMMON NORMALS: normocephalic HEAD & SCALP: normocephalic MOUTH: Normal oral and palatal mucosa present THROAT: posterior oropharynx normal and uvula midline Neck/C-Spine: COMMON NORMALS: supple GENERAL: Yes normal visual inspection Resp: COMMON NORMALS: normal respiratory effort, No retractions, No use of accessory muscles and clear to auscultation bilaterally AUSCULTATION: clear to auscultation bilaterally Cardio: COMMON NORMALS: regular rate, regular rhythm, S1 normal heart sound present, S2 normal heart sound present, No gallops present (Cardio), No clicks present (Cardio), No murmurs present (Cardio) and Peripheral pulses 2+ throughout RATE: regular rate RHYTHM: regular rhythm HEART SOUNDS: S1 normal heart sound present and S2 normal heart sound present PERIPHERAL PULSES: Peripheral pulses 2+ throughout GI: COMMON NORMALS: Normal to inspection, nondistended, normoactive bowel sounds present, Soft to palpation, non-tender and no masses PALPATION: Yes Soft to palpation : COMMON NORMALS: Yes no CVA tenderness BLADDER/KIDNEY EXAM: Yes no CVA tenderness Back/Pelvis: COMMON NORMALS: no CVA tenderness Extremity: COMMON NORMALS: normal to inspection Neuro: COMMON NORMALS: patient oriented x3 SENSORIUM/ORIENTATION: Yes alert Skin: GENERAL SKIN EXAM: dry skin Course Vital Signs: Vital signs: Vital Signs Temperature 97.9 F 06/10/21 15:34 Pulse Rate 67 06/10/21 15:34 Respiratory Rate 18 06/10/21 15:34 Blood Pressure 127/81 06/10/21 15:34 Pulse Oximetry 100 06/10/21 15:34 [facility] - General Adult Medical Decision Making Patient is a 30-year-old female comes to the ED and need of rabies vaccination after exposure to bat. Patient says she was showering and a bat was in her loofah. She was squeezing the loofah when she felt the bat. The bat then fell out of loofah. She denies any known bite or injury to hands. It is unknown how long bat was in house. After talking with patient about the risk of rabies transmission from a bat and the rabies postexposure prophylaxis shots she came to the conclusion that she would like to receive the rabies shots today. Patient was given rabies IM and the immunoglobulin. She was discharged with the schedule for when to return for the rest of the rabies series shots. She was told to come back in 3 days to get her next dose. Follow-up with PCP in 5 to 7 days for reevaluation. Patient understood and agreed with plan. Discharge Plan Discharge Patient Disposition: Home Clinical Impression: Need for post exposure prophylaxis for rabies Condition: Stable Prescriptions: No Action Nortrel (28) 1-35 mg-mcg tablet 1 tab PO DAILY Qty: 28 2RF Lidocaine Viscous 2 % solution 5 ml PO Q3H Qty: 100 2RF hydroxyzine pamoate 25 mg capsule See Rx Instructions PO .at bedtime Qty: 60 2RF Rx Instructions: 25-50 PO .at bedtime; Zofran 4 mg tablet 4 mg PO Q6H PRN (Reason: nausea and vomiting) Qty: 20 0RF Discharge Orders: Discharge ED (Routine); Ordered 06/10/21 Ordered By: Jose Banegas Referrals: Carolina García, BAR ATTENDANT-C [Primary Care Provider] - Discharge Diet: Regular Discharge Activity: Resume usual activity Patient Instructions: Rabies Vaccine (By injection), Rabies Immune Globulin (By injection), Rabies (ED) Activity Restrictions/Additional Instructions: Follow-up with medical provider as directed in 7 to 10 days for reevaluation. Return to the ED for rabies vaccination dose on day 3(06/13), 7(06/17) and 14(06/24) from day of first vaccination. Return to the ER or your medical provider if condition worsens. Please read and understand discharge instructions. If any questions, please ask. Coding Level of Care Code ED [employer] for [place] [facility] Exam Detailed
[2021-06-10] MEDS: diphenhydrAMINE 50 mg Capsule PO (17:07)
[2021-06-10] MEDS: rabies vaccine 2.5 unit SDV IM (17:16)
--- NOTE | 2021-06-10 17:54 | PC.NURSE ---
pt denies any symptoms at this time. informed here if symptoms should appear she should return to er or closest appropriate facility.
[2021-06-10 17:59] VITALS: BP 114/82; PULSE 69; RESP 16; O2SAT 99
== END 2021-06-10 17:59 | disposition home or self-care (01) ==
PROVIDERS: Emergency Provider Physician Assistant; PCP Nurse Practitioner
DX: Z20.3 Contact with and (suspected) exposure to rabies (principal); Z29.14 Encounter for prophylactic rabies immune globulin; Z23 Encounter for immunization
CPT/HCPCS: 90375; 90471; 90675; 96372; 99283; Q0163

== ENCOUNTER → 2022-07-08 16:01 | Outpatient (BNVA) | payer BC, SELFPAY | PROVIDERS: PCP Nurse Practitioner; Visit Provider Nurse Practitioner | DX: F41.9 Anxiety disorder, unspecified (principal); G43.909 Migraine, unspecified, not intractable, without status migrainosus; J32.9 Chronic sinusitis, unspecified; R05.9 Cough, unspecified | CPT/HCPCS: 80053; 85025 ==

== ENCOUNTER → 2022-09-04 08:38 | Outpatient (BNVA) | payer OTHER, SELFPAY | PROVIDERS: PCP Nurse Practitioner; Visit Provider Nurse Practitioner | DX: D69.6 Thrombocytopenia, unspecified (principal); E55.9 Vitamin D deficiency, unspecified | CPT/HCPCS: 80053; 82306; 82607; 85025 ==

== ENCOUNTER → 2022-12-10 09:42 | Outpatient (BNVA) | payer OTHER, SELFPAY | PROVIDERS: PCP Nurse Practitioner; Visit Provider Nurse Practitioner Family | DX: M54.2 Cervicalgia (principal) | CPT/HCPCS: 72040; 85025 ==

== ENCOUNTER 2022-12-26 12:34 | Outpatient (CLI) | payer OTHER, SELFPAY ==
--- NOTE | 2022-12-26 12:45 | US_ITS ---
WS: [id number] ULTRASOUND SOFT TISSUES LEFT posterior neck. HISTORY: M54.2 - Cervicalgia COMPARISON: None available. TECHNIQUE: 2-D and color Doppler imaging is submitted. Palpable area along the LEFT posterior neck corresponds to a benign-appearing lymph node measuring 7 x 5 x 2 mm. No increased vascularity. No additional masses or nodules or lymph nodes are identified. IMPRESSION: Palpable area posterior LEFT neck corresponds to a benign lymph node.
== END 2022-12-26 12:35 | disposition home or self-care (01) ==
PROVIDERS: PCP Nurse Practitioner; Visit Provider Nurse Practitioner Family
DX: M54.2 Cervicalgia (principal); R22.1 Localized swelling, mass and lump, neck
CPT/HCPCS: 76536

== ENCOUNTER → 2022-12-30 09:19 | Outpatient (BNVA) | payer OTHER, SELFPAY | PROVIDERS: PCP Nurse Practitioner; Visit Provider Nurse Practitioner Family | DX: M54.2 Cervicalgia (principal); G89.29 Other chronic pain; R59.9 Enlarged lymph nodes, unspecified; R29.898 Other symptoms and signs involving the musculoskeletal system; R13.10 Dysphagia, unspecified; R93.89 Abnormal findings on diagnostic imaging of other specified body structures; R59.1 Generalized enlarged lymph nodes | CPT/HCPCS: 85025 ==

== ENCOUNTER 2023-03-23 06:00 | Outpatient (RCR) | payer OTHER, SELFPAY | END 2023-04-02 23:59 | disposition home or self-care (01) | LOC: APT 06:00 | PROVIDERS: Visit Provider Emergency Medicine | DX: M54.2 Cervicalgia (principal) | CPT/HCPCS: 97161 ==

== ENCOUNTER → 2023-11-30 15:17 | Outpatient (BNVA) | payer OTHER, SELFPAY | PROVIDERS: Visit Provider Nurse Practitioner Women's Health | DX: Z12.4 Encounter for screening for malignant neoplasm of cervix (principal); N97.9 Female infertility, unspecified; N92.6 Irregular menstruation, unspecified; R10.2 Pelvic and perineal pain | CPT/HCPCS: 82306; 82670; 83001; 83002; 83036; 83520; 84144; 84146; 84402; 84403; 84439; 84443; 84481; 87624 ==

== ENCOUNTER → 2023-12-03 12:04 | Outpatient (BNVA) | payer OTHER, SELFPAY | PROVIDERS: Visit Provider Nurse Practitioner Women's Health | DX: R10.2 Pelvic and perineal pain (principal); N92.0 Excessive and frequent menstruation with regular cycle | CPT/HCPCS: 76830 ==

== ENCOUNTER 2024-04-18 13:39 | Outpatient (CLI) | payer OTHER, SELFPAY ==
--- NOTE | 2024-04-18 16:54 | XR_ITS ---
WS: [id number] Thoracic spine, 3 views, 04/18/2024 Clinical Data: M54.6 - Pain in thoracic spine Comparison: None. Findings: No compression fractures are seen. The disc heights are normal. The paravertebral regions are normal. XR/XR thoracic spine 3V* [id number] Impression: Negative thoracic spine.
--- NOTE | 2024-04-18 16:54 | XR_ITS ---
WS: [id number] Lumbar spine, 3 views, 04/18/2024 Clinical Data: M54.50 - Low back pain, unspecified Comparison: None. Findings: No compression fractures or subluxation is seen. No disc space narrowing is seen. The transverse proc esses and SI joints are normal. XR/XR lumbar spine 2-3V* [id number] Impression: Negative lumbar spine.
--- NOTE | 2024-04-18 16:54 | XR_ITS ---
WS: [id number] Cervical spine, 3 views, 04/18/2024 Clinical Data: M54.2 - Cervicalgia Comparison: Cervical spine, 12/10/2022 Findings: No compression fractures are seen. The disc heights are normal. There is no prevertebral so ft tissue swelling. The odontoid is unremarkable. There is slight loss of the normal lordotic curvatu re. The soft tissues of the neck and the lung apices are normal. XR/XR cervical spine 3V* [id number] Impression: Negative cervical spine.
== END 2024-04-18 13:40 | disposition home or self-care (01) ==
LOC: RAD 13:41
PROVIDERS: PCP Nurse Practitioner; Visit Provider Clinical Nurse Specialist Adult Health
DX: M54.50 Low back pain, unspecified (principal); M54.6 Pain in thoracic spine; M54.2 Cervicalgia
CPT/HCPCS: 72040; 72072; 72100

== ENCOUNTER 2024-05-23 14:49 | Outpatient (CLI) | payer OTHER, SELFPAY ==
--- NOTE | 2024-05-23 15:15 | MR_ITS ---
WS: [id number] MRI CERVICAL SPINE NONCONTRAST TECHNIQUE: Sagittal T1, T2 and STIR imaging. Axial T2, gradient, and fiesta imaging. CLINICAL INFORMATION: M54.50 - Low back pain, unspecified COMPARISON: MRI 01/26/2023 FINDINGS: Straightening of the normal cervical lordosis. Cord signal is normal. Small central protrusions C4-5 C2-C3: Normal. C3-C4: Minimal disc bulging. Spinal canal and foramen are patent. C4-C5: Shallow central protrusion with an annular fissure. Slight effacement of the ventral thecal sa c. This is minimally progressed compared to previous. Mild facet arthropathy. Uncovertebral joint hyp ertrophy. Mild RIGHT greater than LEFT bony foraminal narrowing. C5-C6: Tiny shallow LEFT paracentral protrusion. Tiny annular fissure. Slight effacement of the ventr al thecal sac. Mild facet arthropathy. Mild RIGHT greater than LEFT bony foraminal narrowing. Mild fa cet arthropathy. C6-C7: Mild LEFT and no significant RIGHT foraminal narrowing. Spinal canal is patent. C7-T1: Mild LEFT foraminal narrowing. Visualized brain stem structures: Normal. Prevertebral soft tissues: Normal. MR/MR cervical spin wo con* [id number] IMPRESSION: 1. Straightening the normal cervical lordosis. Small disc protrusions C3-C4 C4 -C5 and C5-C6. 2. Central protrusion with a small annular fissure at C4-5 slightly progressed compared to previous. Spinal canal remains patent. 3. Tiny LEFT paracentral protrusion C5-6 with a tiny annular fissure appears s lightly progressed. 4. Mild bony foraminal narrowing worse at RIGHT C4-5, RIGHT C5-6, and LEFT C6- 7.
--- NOTE | 2024-05-23 16:00 | MR_ITS ---
WS: [id number] MRI HEAD WITH CONTRAST TECHNIQUE: Sagittal T1, T2 axial, T2 axial FLAIR, axial susceptibility weighted imaging, axial diffus ion weighted images, and coronal T2 images were obtained. Pre and post-T1 axial and post T1 coronal i mages. ADC and FSPGR images. CLINICAL INFORMATION: F43.10 - Post-traumatic stress disorder, unspecified COMPARISON: None. FINDINGS: No evidence of restricted diffusion to suggest acute ischemia. Ventricular system and basal cisterns are patent. Normal posterior fossa. Normal vascular flow voids at the skull base. No extra-axial flui d collections. No evidence of mass or mass effect. Paranasal sinuses are well aerated. Mastoid air cells are well aerated. No hemosiderin on susceptibil ity-weighted images. Normal optic chiasm and pituitary infundibulum. Temporal lobes and hippocampal f ormations are normal in appearance. No abnormal gadolinium enhancement. Normal visualized dural venous sinuses. MR/MR head wo/w con [id number] IMPRESSION: 1. No acute intracranial findings. 2. No suspicious intracranial signal abnormalities 3. No hemosiderin on susceptibility-weighted images. 4. No other suspicious findings.
--- NOTE | 2024-05-23 16:45 | MR_ITS ---
WS: [id number] MRI LUMBAR SPINE NONCONTRAST TECHNIQUE: Sagittal T1, T2 and STIR imaging. Axial T1 and T2 imaging. CLINICAL INFORMATION: M54.50 - Low back pain, unspecified COMPARISON: None. FINDINGS: Mild lumbar curve. No acute compression. No high-grade central canal stenosis. L1-L2: Minimal annular bulging. Mild facet arthropathy. L2-L3: Mild facet arthropathy. Spinal canal and foramen are patent. L3-L4: Mild annular bulging. Mild facet arthropathy. Mild LEFT foraminal narrowing. L4-L5: Mild annular bulging. Slight impingement on the subarticular recess bilaterally and traversing L5 nerve roots. Mild facet arthropathy. Foramen are patent. L5-S1: Mild annular bulging. Mild facet arthropathy. Spinal canal and foramen are patent. Visualized pelvic bony structures: Normal. Paravertebral soft tissues: Normal. Partially visualized RIGHT hydronephrosis. This is similar to 02/01/2020 CT. MR/MR lumbar spine wo con* [id number] IMPRESSION: 1. Mild lumbar curve. No acute compression. 2. Mild annular bulging L4-5 with slight impingement subarticular recess bilat erally and traversing L5 nerve roots. 3. Mild LEFT L3-4 foraminal narrowing. 4. Partially visualized RIGHT hydronephrosis. This is similar to 02/01/2020 CT.
[2024-05-23] MEDS: gadobenate dimeglumine 20 mL vial IV (16:49)
== END 2024-05-23 14:50 | disposition home or self-care (01) ==
PROVIDERS: PCP Nurse Practitioner; Visit Provider Specialist
DX: F43.10 Post-traumatic stress disorder, unspecified (principal); F07.81 Postconcussional syndrome; M54.2 Cervicalgia; M43.8X6 Other specified deforming dorsopathies, lumbar region; M51.369 Other intervertebral disc degeneration, lumbar region without mention of lumbar back pain or lower extremity pain; M48.061 Spinal stenosis, lumbar region without neurogenic claudication; N13.30 Unspecified hydronephrosis; M47.896 Other spondylosis, lumbar region; M51.379 Other intervertebral disc degeneration, lumbosacral region without mention of lumbar back pain or lower extremity pain; M47.897 Other spondylosis, lumbosacral region
CPT/HCPCS: 70553; 72141; 72148

== ENCOUNTER 2024-07-02 05:00 | Outpatient (RCR) | payer SELFPAY | END 2024-08-01 23:59 | disposition home or self-care (01) | LOC: APT 05:00 | PROVIDERS: PCP Nurse Practitioner; Visit Provider Specialist | DX: M54.50 Low back pain, unspecified (principal) | CPT/HCPCS: 97110; 97161 ==

== ENCOUNTER 2024-08-02 06:30 | Outpatient (RCR) | payer SELFPAY | END 2024-08-31 23:59 | disposition home or self-care (01) | LOC: APT 06:30 | PROVIDERS: PCP Nurse Practitioner; Visit Provider Specialist | DX: M54.50 Low back pain, unspecified (principal) | CPT/HCPCS: 97110; 97140; 97530 ==

== ENCOUNTER 2024-08-17 13:40 | Outpatient (CLI) | payer OTHER, SELFPAY | END 2024-08-17 13:41 | disposition home or self-care (01) | LOC: RAD 08-19 06:20 | PROVIDERS: PCP Nurse Practitioner; Visit Provider Clinical Nurse Specialist Adult Health | DX: R30.0 Dysuria (principal); R31.9 Hematuria, unspecified | CPT/HCPCS: 81000; 87086 ==

== ENCOUNTER 2024-09-01 05:00 | Outpatient (RCR) | payer SELFPAY | END 2024-10-01 23:59 | disposition home or self-care (01) | LOC: APT 05:00 | PROVIDERS: PCP Nurse Practitioner; Visit Provider Specialist | DX: M54.50 Low back pain, unspecified (principal) | CPT/HCPCS: 97110; 97112; 97530 ==

== ENCOUNTER → 2025-01-11 09:56 | Outpatient (BNVA) | payer SELFPAY | PROVIDERS: PCP Nurse Practitioner; Visit Provider Nurse Practitioner | DX: D69.6 Thrombocytopenia, unspecified (principal); F41.9 Anxiety disorder, unspecified; E55.9 Vitamin D deficiency, unspecified | CPT/HCPCS: 80053; 82306; 82607; 84439; 84443; 84481; 85025 ==

== ENCOUNTER 2025-02-10 10:14 | Outpatient (CLI) | payer OTHER, SELFPAY | END 2025-02-10 10:15 | disposition home or self-care (01) | LOC: LAB 10:16 | PROVIDERS: PCP Nurse Practitioner; Visit Provider Nurse Practitioner | DX: N91.2 Amenorrhea, unspecified (principal) | CPT/HCPCS: 36415; 84702 ==

== ENCOUNTER → 2025-02-16 08:41 | Outpatient (BNVA) | payer OTHER, SELFPAY | PROVIDERS: PCP Nurse Practitioner; Visit Provider Nurse Practitioner | DX: Z87.59 Personal history of other complications of pregnancy, childbirth and the puerperium (principal) | CPT/HCPCS: 84702 ==